=== PATIENT | male | born 1955 | race African-American/Black ===

== ENCOUNTER 2017-12-23 21:20 | Inpatient (IN) | payer BC ==
[~2017-12-23] VITALS: Ht 170.2 cm; Wt 107.5 kg
[~2017-12-23 21:20] MED LIST: ALBU6.7H INH; Atenolol PO; Docusate Sodium PO; LOSA100T3 PO
[2017-12-23] MEDS ORDERED: ALBUTEROL (0.083%) 2.5MG/3ML NEB HHN STA (21:23)
[2017-12-23] MEDS ORDERED: IPRATROPIUM BROMIDE (0.02%) 0.5MG/2.5ML NEB HHN STA (21:23)
[2017-12-23 21:38] LABS: BG BASE EXCESS -20.1 mmol/L (-2.0-2.0); BG CARBOXYHEMOGLOBIN 0.3 % (0.5-1.5); BG DEOXYHEMOGLOBIN 0.7 % (0.0-5.0); BG FRACTION INSPIRED OXYGEN 100; BG HCO3 ACT 6.1 mmol/L (22.0-26.0); BG METHEMOGLOBIN 0.3 % (0.0-1.5); BG OXYGEN SATURATION 99.3 % (92.0-98.5); BG OXYHEMOGLOBIN 98.7 % (94.0-97.0); BG PH 7.176 (7.350-7.450); BG PO2 219.4 mmHg (75.0-100.0); BG SAMPLE SITE RIGHT RADIAL; BG VENT MODE MASK - CPAP
[2017-12-23 22:02] LABS: HEMATOCRIT. 39.3 % (42.0-52.0); HEMOGLOBIN. 12.2 g/dL (14.0-18.0); MEAN CORPUSCULAR HEMOGLOBIN 25.4 pg (28.0-32.0); MEAN CORPUSCULAR VOLUME 81.8 fL (80.0-94.0); RED BLOOD CELL COUNT 4.81 mill/uL (4.7-6.1); RED CELL DISTRIBUTION WIDTH 15.5 % (11.6-14.6)
[2017-12-23 22:08] LABS: BETA HYDROXYBUTYRATE 0.4 mMol/L (0.0-0.3); CHLORIDE 92 mEq/L (98-107)
[2017-12-23] MEDS ORDERED: VANCOMYCIN 2,000 MG in DEXT 5% WATER 500 ML IV NR (22:15)
[2017-12-23] MEDS ORDERED: SODIUM CHLORIDE 0.9% 1000ML BAG (SEPSIS BOLUS) IV ONE (22:15)
[2017-12-23] MEDS ORDERED: PIPERACILLIN SODIUM/TAZOBACTAM 4.5 G in DEXT 5% WATER 100 ML IV SCH (22:15)
[2017-12-23 22:23] LABS: MEAN PLATELET VOLUME 10.8 fl (7.4-10.4); PLATELET 552 x1000/uL (130-400)
[2017-12-23 22:25] LABS: PLATELET ESTIMATE INCREASED
[2017-12-23] MEDS ORDERED: SODIUM BICARBONATE 8.4% 1 MEQ/ML 50ML SYR IV NR ×2 (22:45)
[2017-12-23] MEDS ORDERED: PIPERACILLIN/TAZ 2.25G PREMIX 50 ML IV NR (22:45)
[2017-12-23] MEDS ORDERED: SODIUM CHLORIDE 0.9% 1,000 ML IV NR (22:45)
[2017-12-24] VITALS (72 sets, daily range): BP systolic 53–149; BP diastolic 20–93
[2017-12-24] MEDS ORDERED: SODIUM BICARBONATE 8.4% 1 MEQ/ML 50ML SYR IV NR
[2017-12-24] MEDS ORDERED: NOREPINEPHRINE 4 MG in DEXT 5% WATER 246 ML IV ONE ×4 (00:45)
[2017-12-24 00:55] LABS: CLARITY URINE TURBID (CLEAR); KETONES URINE TRACE (NEGATIVE); LEUKOCYTE ESTERASE URINE 3+ (NEGATIVE); NITRITE URINE NEGATIVE (NEGATIVE); OCCULT BLOOD URINE 3+ (NEGATIVE); PROTEIN URINE 4+ (NEGATIVE); SPECIFIC GRAVITY URINE 1.018 (1.005-1.030)
[2017-12-24 01:00] LABS: COLOR URINE BROWN (YELLOW)
[2017-12-24] MEDS ORDERED: IBUPROFEN 600MG TABLET PO PRN (04:45)
[2017-12-24] MEDS ORDERED: SODIUM CHLORIDE 0.9% 100 ML IV ONE (04:45)
[2017-12-24] MEDS ORDERED: SODIUM CHLORIDE 0.9% 1,000 ML IV SCH (06:00)
[2017-12-24] MEDS ORDERED: PIPERACILLIN/TAZ 2.25G PREMIX 50 ML IV SCH (06:00)
[2017-12-24] MEDS ORDERED: PIPERACILLIN/TAZ 3.375G PREMIX 50 ML IV SCH (06:00)
[2017-12-24] MEDS: ENOXAPARIN 40MG/0.4ML SYR SUBCUT SCH (06:05)
[2017-12-24] MEDS: NOREPINEPHRINE 8 MG in SODIUM CHLORIDE 0.9% 242 ML IV PRN ×4 (06:08→21:28)
[2017-12-24] MEDS ORDERED: PANTOPRAZOLE 40MG DR TABLET PO SCH (07:50)
[2017-12-24 08:04] LABS: BG BASE EXCESS -3.1 mmol/L (-2.0-2.0); BG CARBOXYHEMOGLOBIN 0.3 % (0.5-1.5); BG DEOXYHEMOGLOBIN 3.6 % (0.0-5.0); BG FRACTION INSPIRED OXYGEN 44; BG HCO3 ACT 19.5 mmol/L (22.0-26.0); BG OXYGEN SATURATION 96.4 % (92.0-98.5); BG OXYHEMOGLOBIN 96.1 % (94.0-97.0); BG PCO2 27.6 mmHg (35.0-45.0); BG PH 7.466 (7.350-7.450); BG SAMPLE SITE LEFT BRACHIAL; BG TOTAL HEMOGLOBIN 11.8 g/dL (12.0-18.0); BG VENT MODE NASAL CANNULA
[2017-12-24] MEDS: SODIUM BICARBONATE 100 MEQ in DEXTROSE 5% WATER 1,000 ML IV SCH ×2 (08:39→21:27)
[2017-12-24 09:29] LABS: HEMATOCRIT. 33.1 % (42.0-52.0); HEMOGLOBIN. 10.9 g/dL (14.0-18.0); MEAN CORPUSCULAR VOLUME 78.7 fL (80.0-94.0); MEAN PLATELET VOLUME 10.5 fl (7.4-10.4); PLATELET 495 x1000/uL (130-400); RED BLOOD CELL COUNT 4.21 mill/uL (4.7-6.1); RED CELL DISTRIBUTION WIDTH 15.3 % (11.6-14.6)
[2017-12-24 10:19] LABS: PLATELET ESTIMATE INCREASED
[2017-12-24] MEDS ORDERED: ETOMIDATE 2MG/ML 10ML VIAL IV ONE (10:22)
[2017-12-24] MEDS ORDERED: SUCCINYLCHOLINE CHLORIDE 200MG/10ML VIAL IV ONE (10:22)
[2017-12-24] MEDS ORDERED: MIDAZOLAM HCL 100 MG in DEXT 5% WATER 80 ML IV PRN (10:30)
[2017-12-24 10:47] LABS: CREATINE KINASE MB FRACTION 20.4 ng/mL (0.5-3.6); T4 FREE 1.71 ng/dL (0.76-1.46)
[2017-12-24] MEDS ORDERED: POTASSIUM CHLORIDE INJ 40 MEQ in SODIUM CHLORIDE 0.9% 250 ML IV NR ×2 (12:00→21:00)
[2017-12-24] MEDS: FENTANYL CITRATE/PF 500 MCG in SODIUM CHLORIDE 0.9% 40 ML IV PRN ×2 (12:02→18:03)
[2017-12-24 13:46] LABS: BG BASE EXCESS -2.7 mmol/L (-2.0-2.0); BG CARBOXYHEMOGLOBIN 0.1 % (0.5-1.5); BG DEOXYHEMOGLOBIN 1.5 % (0.0-5.0); BG FRACTION INSPIRED OXYGEN 60; BG HCO3 ACT 19.6 mmol/L (22.0-26.0); BG METHEMOGLOBIN 0.2 % (0.0-1.5); BG OXYGEN SATURATION 98.5 % (92.0-98.5); BG OXYHEMOGLOBIN 98.2 % (94.0-97.0); BG PCO2 26.8 mmHg (35.0-45.0); BG PH 7.481 (7.350-7.450); BG PO2 124.9 mmHg (75.0-100.0); BG SAMPLE SITE RIGHT RADIAL; BG TIDAL VOLUME(mL) 500 mL; BG TOTAL HEMOGLOBIN 12.2 g/dL (12.0-18.0); BG VENT MODE VENT - A/C; BG VENT RATE 12 set
[2017-12-24] MEDS: MEROPENEM 1,000 MG in SODIUM CHLORIDE 0.9% 100 ML IV SCH ×2 (14:29→23:35)
[2017-12-24 15:47] LABS: CREATINE KINASE MB FRACTION 21.5 ng/mL (0.5-3.6)
[2017-12-24 15:58] LABS: TROPONIN I 0.61 ng/mL (0.00-0.04)
[2017-12-24 16:01] LABS: HEPATITIS B SURFACE ANTIGEN NEGATIVE
[2017-12-24 16:30] LABS: HEPATITIS B CORE AB IGM NEGATIVE
[2017-12-24 16:31] LABS: HEPATITIS A AB IGM NEGATIVE (NEGATIVE)
[2017-12-24] MEDS ORDERED: PHENYLEPHRINE 20 MG in DEXT 5% WATER 248 ML IV PRN (17:30)
[2017-12-24 18:29] LABS: BG BASE EXCESS -1.4 mmol/L (-2.0-2.0); BG CARBOXYHEMOGLOBIN 0.3 % (0.5-1.5); BG DEOXYHEMOGLOBIN 2.2 % (0.0-5.0); BG FRACTION INSPIRED OXYGEN 50; BG HCO3 ACT 20.7 mmol/L (22.0-26.0); BG OXYGEN SATURATION 97.8 % (92.0-98.5); BG OXYHEMOGLOBIN 97.5 % (94.0-97.0); BG PCO2 27.2 mmHg (35.0-45.0); BG PH 7.499 (7.350-7.450); BG PO2 101.6 mmHg (75.0-100.0); BG SAMPLE SITE RIGHT RADIAL; BG TIDAL VOLUME(mL) 500 mL; BG TOTAL HEMOGLOBIN 11.9 g/dL (12.0-18.0); BG VENT MODE VENT - A/C; BG VENT RATE 12 set
[2017-12-24 19:08] LABS: MEAN CORPUSCULAR HEMOGLOBIN 26.2 pg (28.0-32.0); MEAN CORPUSCULAR VOLUME 78.6 fL (80.0-94.0); PLATELET 441 x1000/uL (130-400); RED BLOOD CELL COUNT 3.44 mill/uL (4.7-6.1); RED CELL DISTRIBUTION WIDTH 15.7 % (11.6-14.6)
[2017-12-24] MEDS ORDERED: INSULIN REGULAR (DRIP) 100 UNITS in SODIUM CHLORIDE 0.9% 100 ML IV SCH (19:52)
[2017-12-24] MEDS ORDERED: INSULIN REGULAR (DRIP) 100 UNITS in SODIUM CHLORIDE 0.9% 99 ML IV PRN (20:00)
[2017-12-24] MEDS ORDERED: DEXTROSE 50% WATER 50ML SYRINGE IV PRN ×2 (20:00)
[2017-12-24] MEDS: BLOOD SUGAR DIAGNOSTIC STRIP TEST SCH ×4 (20:32→23:35)
[2017-12-24] MEDS ORDERED: PHENYLEPHRINE HCL 10 MG/ML 1ML (IV VIAL) IV ONE (20:34)
[2017-12-24] MEDS ORDERED: NOREPINEPHRINE BITARTRATE 1MG/ML 4ML IV ONE (20:34)
[2017-12-24] MEDS: IPRATROPIUM/ALBUTEROL 0.5-3(2.5)MG/3ML NEB HHN PRN (20:55)
[2017-12-24] MEDS ORDERED: VANCOMYCIN 750 MG PREMIX 150 ML IV SCH (22:00)
[2017-12-25] VITALS (96 sets, daily range): BP systolic 42–174; BP diastolic 19–101
[2017-12-25] MEDS: BLOOD SUGAR DIAGNOSTIC STRIP TEST SCH ×3 (01:00→02:58)
[2017-12-25] MEDS: NOREPINEPHRINE 8 MG in SODIUM CHLORIDE 0.9% 242 ML IV PRN ×2 (03:23→08:54)
[2017-12-25] MEDS: PHENYLEPHRINE 20 MG in SODIUM CHLORIDE 0.9% 248 ML IV PRN ×3 (03:24→08:55)
[2017-12-25] MEDS: FENTANYL CITRATE/PF 500 MCG in SODIUM CHLORIDE 0.9% 40 ML IV PRN ×3 (03:26→22:41)
[2017-12-25] MEDS: ACETAMINOPHEN 325MG TABLET PO PRN (03:29)
[2017-12-25 05:37] LABS: HEMATOCRIT. 30.5 % (42.0-52.0); HEMOGLOBIN. 10.1 g/dL (14.0-18.0); MEAN CORPUSCULAR HEMOGLOBIN 25.8 pg (28.0-32.0); MEAN CORPUSCULAR VOLUME 77.7 fL (80.0-94.0); PLATELET 576 x1000/uL (130-400); RED BLOOD CELL COUNT 3.92 mill/uL (4.7-6.1)
[2017-12-25] MEDS: MIDAZOLAM HCL 100 MG in SODIUM CHLORIDE 0.9% 80 ML IV PRN ×3 (05:38→19:48)
[2017-12-25] MEDS: SODIUM CHLORIDE 0.45% 1,000 ML IV SCH ×2 (05:40→18:14)
[2017-12-25 06:23] LABS: CREATINE KINASE MB FRACTION 7.3 ng/mL (0.5-3.6)
[2017-12-25 08:51] LABS: BG BASE EXCESS -4.4 mmol/L (-2.0-2.0); BG CARBOXYHEMOGLOBIN 0.3 % (0.5-1.5); BG DEOXYHEMOGLOBIN 4.7 % (0.0-5.0); BG FRACTION INSPIRED OXYGEN 40; BG HCO3 ACT 18.2 mmol/L (22.0-26.0); BG METHEMOGLOBIN 0.1 % (0.0-1.5); BG OXYGEN SATURATION 95.3 % (92.0-98.5); BG OXYHEMOGLOBIN 94.9 % (94.0-97.0); BG PCO2 26.4 mmHg (35.0-45.0); BG PH 7.457 (7.350-7.450); BG PO2 79.2 mmHg (75.0-100.0); BG SAMPLE SITE LEFT RADIAL; BG TIDAL VOLUME(mL) 500 mL; BG TOTAL HEMOGLOBIN 11.2 g/dL (12.0-18.0); BG VENT MODE VENT - A/C; BG VENT RATE 12 set
[2017-12-25] MEDS: ENOXAPARIN 40MG/0.4ML SYR SUBCUT SCH (08:58)
[2017-12-25] MEDS: VASOPRESSIN 10 UNIT in SODIUM CHLORIDE 0.9% 99.5 ML IV PRN ×3 (09:44→18:42)
[2017-12-25] MEDS: PANTOPRAZOLE SODIUM 40 MG/VIAL IV SCH (09:46)
[2017-12-25 09:52] LABS: PLATELET ESTIMATE INCREASED
[2017-12-25] MEDS ORDERED: DOPAMINE 800MG PREMIX 250 ML IV PRN (10:30)
[2017-12-25] MEDS: MEROPENEM 1,000 MG in SODIUM CHLORIDE 0.9% 100 ML IV SCH ×2 (11:02→23:46)
[2017-12-25] MEDS: PHENYLEPHRINE 40 MG in SODIUM CHLORIDE 0.9% 250 ML IV PRN ×4 (11:16→23:46)
[2017-12-25] MEDS ORDERED: DOPAMINE HCL 800 MG in SODIUM CHLORIDE 0.9% 240 ML IV PRN (11:30)
[2017-12-25] MEDS: NOREPINEPHRINE 32 MG in DEXT 5% WATER 468 ML IV PRN (13:51)
[2017-12-25 15:06] LABS: INR 1.4; PARTIAL THROMBOPLASTIN TIME 32.5 sec (23.4-31.0); PROTHROMBIN TIME 14.2 sec (9.4-11.6)
[2017-12-25] MEDS ORDERED: AMIKACIN SULFATE 250 MG in SODIUM CHLORIDE 0.9% 100 ML IV NR (15:30)
[2017-12-25 15:31] LABS: CHLORIDE 99 mEq/L (98-107)
[2017-12-25 19:10] LABS: ANTI-NUCLEAR ANTIBODIES DIRECT Negative (Negative)
[2017-12-25] MEDS: IPRATROPIUM/ALBUTEROL 0.5-3(2.5)MG/3ML NEB HHN PRN (21:06)
[2017-12-26] VITALS (96 sets, daily range): BP systolic 89–161; BP diastolic 33–108
[2017-12-26] MEDS: VASOPRESSIN 10 UNIT in SODIUM CHLORIDE 0.9% 99.5 ML IV PRN (00:41)
[2017-12-26] MEDS: PHENYLEPHRINE 40 MG in SODIUM CHLORIDE 0.9% 250 ML IV PRN ×4 (03:14→16:30)
[2017-12-26] MEDS: FENTANYL CITRATE/PF 500 MCG in SODIUM CHLORIDE 0.9% 40 ML IV PRN ×2 (03:15→11:50)
[2017-12-26 04:55] LABS: HEMOGLOBIN. 10.6 g/dL (14.0-18.0); MEAN CORPUSCULAR VOLUME 78.4 fL (80.0-94.0); MEAN PLATELET VOLUME 10.1 fl (7.4-10.4); PLATELET 524 x1000/uL (130-400); RED BLOOD CELL COUNT 4.21 mill/uL (4.7-6.1); RED CELL DISTRIBUTION WIDTH 15.6 % (11.6-14.6)
[2017-12-26 05:08] LABS: PHOSPHORUS 7.8 mg/dL (2.5-4.9)
[2017-12-26] MEDS: MIDAZOLAM HCL 100 MG in SODIUM CHLORIDE 0.9% 80 ML IV PRN (06:33)
[2017-12-26] MEDS: NOREPINEPHRINE 32 MG in DEXT 5% WATER 468 ML IV PRN (07:39)
[2017-12-26] MEDS: SODIUM CHLORIDE 0.45% 1,000 ML IV SCH ×2 (07:46→20:34)
[2017-12-26] MEDS: IPRATROPIUM/ALBUTEROL 0.5-3(2.5)MG/3ML NEB HHN PRN ×3 (07:52→16:08)
[2017-12-26 08:25] LABS: BG BASE EXCESS -7.4 mmol/L (-2.0-2.0); BG CARBOXYHEMOGLOBIN 0.3 % (0.5-1.5); BG DEOXYHEMOGLOBIN 1.9 % (0.0-5.0); BG FRACTION INSPIRED OXYGEN 50; BG HCO3 ACT 16.5 mmol/L (22.0-26.0); BG METHEMOGLOBIN 0.2 % (0.0-1.5); BG OXYGEN SATURATION 98.1 % (92.0-98.5); BG OXYHEMOGLOBIN 97.6 % (94.0-97.0); BG PCO2 28.2 mmHg (35.0-45.0); BG PH 7.386 (7.350-7.450); BG PO2 121.7 mmHg (75.0-100.0); BG SAMPLE SITE RIGHT RADIAL; BG TIDAL VOLUME(mL) 500 mL; BG TOTAL HEMOGLOBIN 9.9 g/dL (12.0-18.0); BG VENT MODE VENT - A/C; BG VENT RATE 12 set
[2017-12-26] MEDS ORDERED: SODIUM BICARBONATE 8.4% 1 MEQ/ML 50ML SYR IV NR (09:00)
[2017-12-26 09:06] LABS: COMPLEMENT C3 163 mg/dL (82-167)
[2017-12-26] MEDS: PANTOPRAZOLE SODIUM 40 MG/VIAL IV SCH (09:07)
[2017-12-26] MEDS: ENOXAPARIN 40MG/0.4ML SYR SUBCUT SCH (09:08)
[2017-12-26 10:16] LABS: PLATELET ESTIMATE INCREASED
[2017-12-26] MEDS: MEROPENEM 1,000 MG in SODIUM CHLORIDE 0.9% 100 ML IV SCH ×2 (11:19→21:52)
[2017-12-26] MEDS ORDERED: VANCOMYCIN 750 MG PREMIX 150 ML IV NR (18:00)
[2017-12-26] MEDS: SILVER SULFADIAZINE 1% CREAM 50GM TOP SCH (21:53)
[2017-12-27] VITALS (90 sets, daily range): BP systolic 92–123; BP diastolic 23–66
[2017-12-27] MEDS: FENTANYL CITRATE/PF 500 MCG in SODIUM CHLORIDE 0.9% 40 ML IV PRN ×2 (00:01→08:59)
[2017-12-27] MEDS: NOREPINEPHRINE 32 MG in DEXT 5% WATER 468 ML IV PRN ×3 (00:02→23:16)
[2017-12-27] MEDS: IPRATROPIUM/ALBUTEROL 0.5-3(2.5)MG/3ML NEB HHN PRN ×3 (07:43→16:58)
[2017-12-27 08:20] LABS: HEMATOCRIT. 26.5 % (42.0-52.0); HEMOGLOBIN. 8.8 g/dL (14.0-18.0); MEAN CORPUSCULAR HEMOGLOBIN 25.6 pg (28.0-32.0); MEAN CORPUSCULAR VOLUME 77.2 fL (80.0-94.0); MEAN PLATELET VOLUME 9.8 fl (7.4-10.4); PLATELET 484 x1000/uL (130-400); RED BLOOD CELL COUNT 3.44 mill/uL (4.7-6.1)
[2017-12-27] MEDS: ENOXAPARIN 40MG/0.4ML SYR SUBCUT SCH (08:58)
[2017-12-27] MEDS: PANTOPRAZOLE SODIUM 40 MG/VIAL IV SCH (08:58)
[2017-12-27] MEDS: SILVER SULFADIAZINE 1% CREAM 50GM TOP SCH ×2 (08:58→21:53)
[2017-12-27 09:35] LABS: BG BASE EXCESS -3.9 mmol/L (-2.0-2.0); BG CARBOXYHEMOGLOBIN 0.3 % (0.5-1.5); BG DEOXYHEMOGLOBIN 2.6 % (0.0-5.0); BG FRACTION INSPIRED OXYGEN 35; BG HCO3 ACT 19.2 mmol/L (22.0-26.0); BG METHEMOGLOBIN 0.3 % (0.0-1.5); BG OXYGEN SATURATION 97.4 % (92.0-98.5); BG OXYHEMOGLOBIN 96.8 % (94.0-97.0); BG PCO2 28.4 mmHg (35.0-45.0); BG PH 7.448 (7.350-7.450); BG PO2 102.1 mmHg (75.0-100.0); BG SAMPLE SITE RIGHT BRACHIAL; BG TIDAL VOLUME(mL) 550 mL; BG TOTAL HEMOGLOBIN 9.7 g/dL (12.0-18.0); BG VENT MODE VENT - A/C; BG VENT RATE 12 set
[2017-12-27] MEDS: SODIUM CHLORIDE 0.45% 1,000 ML IV SCH (10:28)
[2017-12-27] MEDS: MEROPENEM 1,000 MG in SODIUM CHLORIDE 0.9% 100 ML IV SCH ×2 (10:28→23:14)
[2017-12-27 10:29] LABS: NUCLEATED RED BLOOD CELLS 2 /100 WBC; PLATELET ESTIMATE INCREASED
[2017-12-27 10:44] LABS: TOTAL IRON BINDING CAPACITY 166 ug/dL (250-450)
[2017-12-27] MEDS ORDERED: PHENYLEPHRINE HCL 10 MG/ML 1ML (IV VIAL) IV ONE (14:59)
[2017-12-27] MEDS ORDERED: FENTANYL CITRATE/PF 50MCG/ML 2ML VIAL ONE (14:59)
[2017-12-27] MEDS ORDERED: EPHEDRINE SULFATE 50MG/ML VIAL ONE (15:04)
[2017-12-27] MEDS ORDERED: STERILE WATER FOR INJECTION 10ML VIAL ONE (15:04)
[2017-12-27] MEDS ORDERED: BUPIVACAINE HCL 0.5% (5MG/ML) 50ML ONE (15:20)
[2017-12-27] MEDS ORDERED: ROCURONIUM BROMIDE 10MG/ML VIAL 5ML IV ONE (15:35)
[2017-12-27] MEDS ORDERED: ACETAMINOPHEN 650MG SUPP PR PRN (16:00)
[2017-12-27] MEDS ORDERED: MORPHINE SULFATE 4 MG/ML CPJ (NOT FOR IM USE) IV PRN (16:00)
[2017-12-27] MEDS ORDERED: ONDANSETRON HCL 4MG/2ML VIAL IV PRN (16:00)
[2017-12-27] MEDS ORDERED: VECURONIUM BROMIDE 10 MG/VIAL IV ONE (16:51)
[2017-12-27] MEDS ORDERED: VANCOMYCIN 750 MG PREMIX 150 ML IV NR (17:00)
[2017-12-27] MEDS: DEXT 5%/0.45% NACL KCL 20MEQ/L 1,000 ML IV SCH (17:20)
[2017-12-27] MEDS: METRONIDAZOLE 500 MG PREMIX 100 ML IV SCH ×2 (17:20→21:53)
[2017-12-27] MEDS: ENOXAPARIN 30MG/0.3ML SYR SUBCUT SCH (21:52)
[2017-12-27] MEDS: FAMOTIDINE 20MG/2ML VIAL IV SCH (21:52)
[2017-12-28] VITALS (94 sets, daily range): BP systolic 97–132; BP diastolic 33–81
[2017-12-28] MEDS: DEXT 5%/0.45% NACL KCL 20MEQ/L 1,000 ML IV SCH (00:47)
[2017-12-28 05:20] LABS: HEMATOCRIT. 27.5 % (42.0-52.0); HEMOGLOBIN. 8.9 g/dL (14.0-18.0); MEAN CORPUSCULAR HEMOGLOBIN 25.5 pg (28.0-32.0); MEAN CORPUSCULAR VOLUME 78.4 fL (80.0-94.0); MEAN PLATELET VOLUME 10.1 fl (7.4-10.4); PLATELET 426 x1000/uL (130-400); RED BLOOD CELL COUNT 3.51 mill/uL (4.7-6.1); RED CELL DISTRIBUTION WIDTH 15.3 % (11.6-14.6)
[2017-12-28] MEDS: METRONIDAZOLE 500 MG PREMIX 100 ML IV SCH ×3 (06:03→23:58)
[2017-12-28 07:14] LABS: NUCLEATED RED BLOOD CELLS 3 /100 WBC; PLATELET ESTIMATE INCREASED
[2017-12-28] MEDS ORDERED: DEXT 5%/0.45% NACL 1000ML 1,000 ML IV SCH (07:30)
[2017-12-28] MEDS: IPRATROPIUM/ALBUTEROL 0.5-3(2.5)MG/3ML NEB HHN PRN ×2 (07:46→16:01)
[2017-12-28] MEDS: PANTOPRAZOLE SODIUM 40 MG/VIAL IV SCH (08:47)
[2017-12-28] MEDS: SILVER SULFADIAZINE 1% CREAM 50GM TOP SCH ×2 (08:48→20:56)
[2017-12-28] MEDS: ENOXAPARIN 30MG/0.3ML SYR SUBCUT SCH ×2 (08:48→20:53)
[2017-12-28 09:46] LABS: BG BASE EXCESS -3.3 mmol/L (-2.0-2.0); BG CARBOXYHEMOGLOBIN 0.1 % (0.5-1.5); BG HCO3 ACT 19.2 mmol/L (22.0-26.0); BG METHEMOGLOBIN 0.3 % (0.0-1.5); BG OXYHEMOGLOBIN 97.6 % (94.0-97.0); BG PCO2 26.5 mmHg (35.0-45.0); BG PH 7.479 (7.350-7.450); BG PO2 117.2 mmHg (75.0-100.0); BG SAMPLE SITE RIGHT RADIAL; BG TIDAL VOLUME(mL) 550 mL; BG TOTAL HEMOGLOBIN 9.8 g/dL (12.0-18.0); BG VENT MODE VENT - A/C; BG VENT RATE 16 set
[2017-12-28] MEDS: MEROPENEM 1,000 MG in SODIUM CHLORIDE 0.9% 100 ML IV SCH ×2 (11:35→23:58)
[2017-12-28 13:07] LABS: ANTI-MYELOPEROXIDASE AB < 9.0 U/mL (0.0-9.0); ANTI-PROTEINASE 3 ABS < 3.5 U/mL (0.0-3.5)
[2017-12-28 15:10] LABS: ATYPICAL P-ANCA <1:20 titer (Neg:<1:20); CYTOPLASMIC C-ANCA <1:20 titer (Neg:<1:20); PERINUCLEAR P-ANCA <1:20 titer (Neg:<1:20)
[2017-12-28] MEDS: NOREPINEPHRINE 32 MG in DEXT 5% WATER 468 ML IV PRN (17:20)
[2017-12-28] MEDS: FENTANYL CITRATE/PF 500 MCG in SODIUM CHLORIDE 0.9% 40 ML IV PRN (17:20)
[2017-12-28] MEDS: FAMOTIDINE 20MG/2ML VIAL IV SCH (20:53)
[2017-12-28] MEDS ORDERED: TOTAL PARENTERAL NUTRITION 1,600 ML IV SCH (21:00)
[2017-12-28] MEDS ORDERED: FAT EMULSIONS 500 ML IV SCH (21:00)
[2017-12-29] VITALS (95 sets, daily range): BP systolic 88–175; BP diastolic 30–94
[2017-12-29] MEDS: VANCOMYCIN 1250MG in DEXTROSE 5% WATER 250ML IV SCH (05:26)
[2017-12-29 06:03] LABS: PHOSPHORUS 3.6 mg/dL (2.5-4.9)
[2017-12-29 06:14] LABS: RED BLOOD CELL COUNT 3.16 mill/uL (4.7-6.1)
[2017-12-29 06:15] LABS: HEMATOCRIT. 24.7 % (42.0-52.0); HEMOGLOBIN. 8.6 g/dL (14.0-18.0); MEAN CORPUSCULAR HEMOGLOBIN 27.2 pg (28.0-32.0); MEAN PLATELET VOLUME 10.4 fl (7.4-10.4); PLATELET 380 x1000/uL (130-400)
[2017-12-29] MEDS: METRONIDAZOLE 500 MG PREMIX 100 ML IV SCH ×3 (07:09→22:46)
[2017-12-29] MEDS: IPRATROPIUM/ALBUTEROL 0.5-3(2.5)MG/3ML NEB HHN PRN ×3 (08:08→20:10)
[2017-12-29] MEDS: ENOXAPARIN 30MG/0.3ML SYR SUBCUT SCH ×2 (08:29→20:34)
[2017-12-29] MEDS: SILVER SULFADIAZINE 1% CREAM 50GM TOP SCH ×2 (08:33→20:39)
[2017-12-29] MEDS ORDERED: LIDOCAINE HCL/PF 1% 10 MG/ML 5ML VIAL ONE (08:48)
[2017-12-29 09:28] LABS: BG BASE EXCESS -3.7 mmol/L (-2.0-2.0); BG DEOXYHEMOGLOBIN 1.3 % (0.0-5.0); BG FRACTION INSPIRED OXYGEN 35; BG HCO3 ACT 18.9 mmol/L (22.0-26.0); BG METHEMOGLOBIN 0.3 % (0.0-1.5); BG OXYGEN SATURATION 98.7 % (92.0-98.5); BG OXYHEMOGLOBIN 98.4 % (94.0-97.0); BG PCO2 25.7 mmHg (35.0-45.0); BG PH 7.484 (7.350-7.450); BG PO2 133.9 mmHg (75.0-100.0); BG SAMPLE SITE RIGHT RADIAL; BG TIDAL VOLUME(mL) 550 mL; BG TOTAL HEMOGLOBIN 8.9 g/dL (12.0-18.0); BG VENT MODE VENT - A/C; BG VENT RATE 16 set
[2017-12-29 09:54] LABS: INR 1.3; PARTIAL THROMBOPLASTIN TIME 28.7 sec (23.4-31.0); PROTHROMBIN TIME 13.4 sec (9.4-11.6)
[2017-12-29 10:06] LABS: NUCLEATED RED BLOOD CELLS 1 /100 WBC
[2017-12-29] MEDS ORDERED: DEXTROSE 50% WATER 50ML SYRINGE IV PRN (10:30)
[2017-12-29] MEDS: BLOOD SUGAR DIAGNOSTIC STRIP TEST SCH ×3 (12:45→23:35)
[2017-12-29] MEDS: INSULIN LISPRO (LOW DOSE) 100 UNITS/ML SUBCUT SCH ×3 (13:21→23:39)
[2017-12-29] MEDS: MEROPENEM 1,000 MG in SODIUM CHLORIDE 0.9% 100 ML IV SCH ×2 (15:36→22:45)
[2017-12-29] MEDS: FAMOTIDINE 20MG/2ML VIAL IV SCH (20:34)
[2017-12-29] MEDS ORDERED: TOTAL PARENTERAL NUTRITION 1,600 ML IV SCH (21:00)
[2017-12-30] VITALS (95 sets, daily range): BP systolic 73–140; BP diastolic 32–53
[2017-12-30] MEDS: FENTANYL CITRATE/PF 500 MCG in SODIUM CHLORIDE 0.9% 40 ML IV PRN (04:55)
[2017-12-30] MEDS: BLOOD SUGAR DIAGNOSTIC STRIP TEST SCH ×4 (05:28→23:14)
[2017-12-30] MEDS: INSULIN LISPRO (LOW DOSE) 100 UNITS/ML SUBCUT SCH ×4 (05:33→23:15)
[2017-12-30 06:03] LABS: HEMOGLOBIN. 7.9 g/dL (14.0-18.0); MEAN CORPUSCULAR HEMOGLOBIN 25.7 pg (28.0-32.0); MEAN CORPUSCULAR VOLUME 77.8 fL (80.0-94.0); MEAN PLATELET VOLUME 10.3 fl (7.4-10.4); PLATELET 282 x1000/uL (130-400); RED BLOOD CELL COUNT 3.09 mill/uL (4.7-6.1); RED CELL DISTRIBUTION WIDTH 14.7 % (11.6-14.6)
[2017-12-30 06:12] LABS: PHOSPHORUS 3.3 mg/dL (2.5-4.9)
[2017-12-30] MEDS: METRONIDAZOLE 500 MG PREMIX 100 ML IV SCH ×2 (06:13→14:18)
[2017-12-30] MEDS: IPRATROPIUM/ALBUTEROL 0.5-3(2.5)MG/3ML NEB HHN PRN ×3 (07:36→20:31)
[2017-12-30] MEDS: ENOXAPARIN 30MG/0.3ML SYR SUBCUT SCH (09:00)
[2017-12-30 09:23] LABS: BG BASE EXCESS -2.4 mmol/L (-2.0-2.0); BG CARBOXYHEMOGLOBIN 0.5 % (0.5-1.5); BG DEOXYHEMOGLOBIN 1.8 % (0.0-5.0); BG FRACTION INSPIRED OXYGEN 35; BG HCO3 ACT 20.6 mmol/L (22.0-26.0); BG METHEMOGLOBIN 0.3 % (0.0-1.5); BG OXYGEN SATURATION 98.2 % (92.0-98.5); BG OXYHEMOGLOBIN 97.4 % (94.0-97.0); BG PCO2 28.2 mmHg (35.0-45.0); BG PH 7.481 (7.350-7.450); BG PO2 115.5 mmHg (75.0-100.0); BG SAMPLE SITE RIGHT RADIAL; BG TIDAL VOLUME(mL) 550 mL; BG TOTAL HEMOGLOBIN 7.8 g/dL (12.0-18.0); BG VENT MODE VENT - A/C; BG VENT RATE 16 set
[2017-12-30] MEDS: SILVER SULFADIAZINE 1% CREAM 50GM TOP SCH ×2 (09:53→20:17)
[2017-12-30 10:23] LABS: PLATELET ESTIMATE NORMAL
[2017-12-30] MEDS: MEROPENEM 1,000 MG in SODIUM CHLORIDE 0.9% 100 ML IV SCH ×2 (11:03→23:14)
[2017-12-30] MEDS: ACETAMINOPHEN 325MG TABLET PO PRN (12:22)
[2017-12-30 17:49] LABS: HEMATOCRIT 25.1 % (42.0-52.0); HEMOGLOBIN 8.2 g/dL (14.0-18.0)
[2017-12-30] MEDS: VANCOMYCIN 1250MG in DEXTROSE 5% WATER 250ML IV SCH (18:02)
[2017-12-30] MEDS: FAMOTIDINE 20MG/2ML VIAL IV SCH (20:17)
[2017-12-30] MEDS ORDERED: TOTAL PARENTERAL NUTRITION 1,600 ML IV SCH (21:00)
[2017-12-31] VITALS (93 sets, daily range): BP systolic 66–163; BP diastolic 15–99
[2017-12-31] MEDS: IPRATROPIUM/ALBUTEROL 0.5-3(2.5)MG/3ML NEB HHN PRN ×4 (00:19→15:28)
[2017-12-31] MEDS: METRONIDAZOLE 500 MG PREMIX 100 ML IV SCH ×3 (00:22→18:31)
[2017-12-31 05:45] LABS: HEMATOCRIT. 24.4 % (42.0-52.0); HEMOGLOBIN. 8.2 g/dL (14.0-18.0); MEAN CORPUSCULAR HEMOGLOBIN 26.5 pg (28.0-32.0); MEAN CORPUSCULAR VOLUME 78.5 fL (80.0-94.0); MEAN PLATELET VOLUME 10.6 fl (7.4-10.4); PLATELET 240 x1000/uL (130-400); RED BLOOD CELL COUNT 3.11 mill/uL (4.7-6.1); RED CELL DISTRIBUTION WIDTH 15.1 % (11.6-14.6)
[2017-12-31 06:04] LABS: PHOSPHORUS 4.2 mg/dL (2.5-4.9)
[2017-12-31] MEDS: BLOOD SUGAR DIAGNOSTIC STRIP TEST SCH ×4 (06:35→18:25)
[2017-12-31] MEDS: INSULIN LISPRO (LOW DOSE) 100 UNITS/ML SUBCUT SCH ×3 (06:36→18:00)
[2017-12-31 07:39] LABS: NUCLEATED RED BLOOD CELLS 1 /100 WBC; PLATELET ESTIMATE NORMAL
[2017-12-31] MEDS: SILVER SULFADIAZINE 1% CREAM 50GM TOP SCH ×2 (09:00→21:13)
[2017-12-31] MEDS ORDERED: ENOXAPARIN 40MG/0.4ML SYR SUBCUT SCH (09:00)
[2017-12-31] MEDS ORDERED: HEPARIN SODIUM 1,000 UNIT/1ML VIAL IV NR (09:45)
[2017-12-31] MEDS: MEROPENEM 1,000 MG in SODIUM CHLORIDE 0.9% 100 ML IV SCH (12:07)
[2017-12-31] MEDS ORDERED: FENTANYL CITRATE/PF 500 MCG in SODIUM CHLORIDE 0.9% 40 ML IV PRN (12:45)
[2017-12-31] MEDS ORDERED: LIDOCAINE HCL 1% 20ML VIAL (Pyxis) INJ ONE (13:57)
[2017-12-31 15:49] LABS: BG BASE EXCESS 0.1 mmol/L (-2.0-2.0); BG CARBOXYHEMOGLOBIN 0.3 % (0.5-1.5); BG DEOXYHEMOGLOBIN 1.8 % (0.0-5.0); BG FRACTION INSPIRED OXYGEN 35; BG HCO3 ACT 22.3 mmol/L (22.0-26.0); BG METHEMOGLOBIN 0.2 % (0.0-1.5); BG OXYGEN SATURATION 98.2 % (92.0-98.5); BG OXYHEMOGLOBIN 97.7 % (94.0-97.0); BG PCO2 28.3 mmHg (35.0-45.0); BG PH 7.515 (7.350-7.450); BG PO2 115.6 mmHg (75.0-100.0); BG SAMPLE SITE RIGHT RADIAL; BG TIDAL VOLUME(mL) 550 mL; BG TOTAL HEMOGLOBIN 10.1 g/dL (12.0-18.0); BG VENT MODE VENT - A/C; BG VENT RATE 16 set
[2017-12-31] MEDS ORDERED: FLUCONAZOLE 400MG/200ML BAG 200 ML IV SCH (16:00)
[2017-12-31] MEDS ORDERED: LIDOCAINE HCL 1% 20ML VIAL (Pyxis) INJ INFIL NR (19:00)
[2017-12-31] MEDS ORDERED: TOTAL PARENTERAL NUTRITION 1,600 ML IV SCH (21:00)
[2017-12-31] MEDS: PANTOPRAZOLE SODIUM 40 MG/VIAL IV SCH (21:11)
[2017-12-31] MEDS: FAMOTIDINE 20MG/2ML VIAL IV SCH (21:12)
[2017-12-31] MEDS: EPOETIN ALFA 10000UNITS/ML VIAL SUBCUT SCH (21:12)
[2018-01-01] VITALS (104 sets, daily range): BP systolic 80–174; BP diastolic 30–79
[2018-01-01] MEDS: BLOOD SUGAR DIAGNOSTIC STRIP TEST SCH
[2018-01-01] MEDS: MEROPENEM 1,000 MG in SODIUM CHLORIDE 0.9% 100 ML IV SCH ×2 (01:41→12:40)
[2018-01-01] MEDS: METRONIDAZOLE 500 MG PREMIX 100 ML IV SCH ×3 (02:20→17:21)
[2018-01-01] MEDS: NOREPINEPHRINE 32 MG in DEXT 5% WATER 468 ML IV PRN (02:24)
[2018-01-01 05:36] LABS: HEMATOCRIT. 23.8 % (42.0-52.0); HEMOGLOBIN. 7.9 g/dL (14.0-18.0); MEAN CORPUSCULAR HEMOGLOBIN 25.9 pg (28.0-32.0); MEAN CORPUSCULAR VOLUME 78.2 fL (80.0-94.0); MEAN PLATELET VOLUME 10.8 fl (7.4-10.4); PLATELET 241 x1000/uL (130-400); RED BLOOD CELL COUNT 3.04 mill/uL (4.7-6.1); RED CELL DISTRIBUTION WIDTH 15.5 % (11.6-14.6)
[2018-01-01] MEDS: INSULIN LISPRO (LOW DOSE) 100 UNITS/ML SUBCUT SCH ×4 (06:00→18:00)
[2018-01-01 06:22] LABS: PHOSPHORUS 4.4 mg/dL (2.5-4.9)
[2018-01-01 07:06] LABS: PLATELET ESTIMATE NORMAL
[2018-01-01] MEDS: SILVER SULFADIAZINE 1% CREAM 50GM TOP SCH ×2 (08:44→21:59)
[2018-01-01] MEDS: IPRATROPIUM/ALBUTEROL 0.5-3(2.5)MG/3ML NEB HHN PRN ×3 (09:06→16:41)
[2018-01-01] MEDS ORDERED: SODIUM BICARBONATE 4% (2.4MEQ) 5ML VIAL IV ONE (09:20)
[2018-01-01] MEDS ORDERED: LIDOCAINE HCL/PF 1% 10 MG/ML 5ML VIAL ONE (09:21)
[2018-01-01] MEDS ORDERED: DIPHENHYDRAMINE 50MG/ML VIAL ONE (10:35)
[2018-01-01] MEDS ORDERED: FENTANYL CITRATE/PF 50MCG/ML 2ML VIAL ONE (10:35)
[2018-01-01] MEDS ORDERED: MIDAZOLAM HCL 5 MG/5 ML VIAL ONE (10:36)
[2018-01-01] MEDS ORDERED: SIMETHICONE 40 MG/0.6 ML 30ML ONE (10:46)
[2018-01-01] MEDS ORDERED: SODIUM CHLORIDE 0.9% 10ML VIAL ONE (10:46)
[2018-01-01] MEDS ORDERED: MIDAZOLAM HCL 5 MG/5 ML VIAL IV PRN (11:44)
[2018-01-01] MEDS ORDERED: FENTANYL CITRATE/PF 50MCG/ML 2ML VIAL IV PRN (11:45)
[2018-01-01] MEDS: PANTOPRAZOLE SODIUM 40 MG/VIAL IV SCH ×2 (12:39→21:58)
[2018-01-01] MEDS: FENTANYL CITRATE/PF 500 MCG in SODIUM CHLORIDE 0.9% 40 ML IV PRN (12:51)
[2018-01-01 13:34] LABS: BG BASE EXCESS -1.9 mmol/L (-2.0-2.0); BG CARBOXYHEMOGLOBIN 0.1 % (0.5-1.5); BG DEOXYHEMOGLOBIN 3.1 % (0.0-5.0); BG FRACTION INSPIRED OXYGEN 35; BG HCO3 ACT 21.4 mmol/L (22.0-26.0); BG METHEMOGLOBIN 0.3 % (0.0-1.5); BG OXYGEN SATURATION 96.9 % (92.0-98.5); BG OXYHEMOGLOBIN 96.5 % (94.0-97.0); BG PCO2 30.5 mmHg (35.0-45.0); BG PH 7.464 (7.350-7.450); BG SAMPLE SITE RIGHT BRACHIAL; BG TIDAL VOLUME(mL) 550 mL; BG TOTAL HEMOGLOBIN 8.1 g/dL (12.0-18.0); BG VENT MODE VENT - A/C; BG VENT RATE 12 set
[2018-01-01] MEDS ORDERED: MICAFUNGIN 100 MG in SODIUM CHLORIDE 0.9% 100 ML IV SCH (15:00)
[2018-01-01] MEDS ORDERED: TOTAL PARENTERAL NUTRITION 1,600 ML IV SCH (21:00)
[2018-01-02] VITALS (94 sets, daily range): BP systolic 88–201; BP diastolic 31–108
[2018-01-02] MEDS: MEROPENEM 1,000 MG in SODIUM CHLORIDE 0.9% 100 ML IV SCH ×2 (00:34→10:52)
[2018-01-02] MEDS: METRONIDAZOLE 500 MG PREMIX 100 ML IV SCH ×3 (00:34→15:42)
[2018-01-02 07:19] LABS: HEMATOCRIT. 21.4 % (42.0-52.0); MEAN CORPUSCULAR HEMOGLOBIN 25.7 pg (28.0-32.0); MEAN CORPUSCULAR VOLUME 79.2 fL (80.0-94.0); MEAN PLATELET VOLUME 10.7 fl (7.4-10.4); PLATELET 225 x1000/uL (130-400); RED CELL DISTRIBUTION WIDTH 15.7 % (11.6-14.6)
[2018-01-02 08:01] LABS: PLATELET ESTIMATE NORMAL
[2018-01-02] MEDS: INSULIN LISPRO (LOW DOSE) 100 UNITS/ML SUBCUT SCH ×4 (08:35→17:09)
[2018-01-02] MEDS: BLOOD SUGAR DIAGNOSTIC STRIP TEST SCH (10:45)
[2018-01-02] MEDS: SILVER SULFADIAZINE 1% CREAM 50GM TOP SCH ×2 (10:52→21:24)
[2018-01-02] MEDS: METOCLOPRAMIDE HCL 10MG/2ML VIAL IV SCH ×3 (10:52→17:09)
[2018-01-02] MEDS: PANTOPRAZOLE SODIUM 40 MG/VIAL IV SCH ×2 (10:52→21:24)
[2018-01-02] MEDS: NOREPINEPHRINE 32 MG in DEXT 5% WATER 468 ML IV PRN (11:41)
[2018-01-02] MEDS ORDERED: VANCOMYCIN 1 G PREMIX 200 ML IV SCH (13:00)
[2018-01-02] MEDS: MICAFUNGIN 100 MG in SODIUM CHLORIDE 0.9% 100 ML IV SCH (13:11)
[2018-01-02] MEDS: FENTANYL CITRATE/PF 500 MCG in SODIUM CHLORIDE 0.9% 40 ML IV PRN ×2 (17:11→23:30)
[2018-01-02 17:22] LABS: HEMATOCRIT 23.5 % (42.0-52.0); HEMOGLOBIN 7.8 g/dL (14.0-18.0)
[2018-01-02] MEDS: TOTAL PARENTERAL NUTRITION 1,600 ML IV SCH (20:56)
[2018-01-02] MEDS: EPOETIN ALFA 10000UNITS/ML VIAL SUBCUT SCH (21:24)
[2018-01-02 21:29] LABS: INR 1.3; PARTIAL THROMBOPLASTIN TIME 22.6 sec (23.4-31.0); PROTHROMBIN TIME 13.4 sec (9.4-11.6)
[2018-01-03] VITALS (91 sets, daily range): BP systolic 92–157; BP diastolic 25–90
[2018-01-03] MEDS: METRONIDAZOLE 500 MG PREMIX 100 ML IV SCH ×4 (00:25→22:51)
[2018-01-03] MEDS: MEROPENEM 1,000 MG in SODIUM CHLORIDE 0.9% 100 ML IV SCH ×3 (00:25→23:23)
[2018-01-03] MEDS: IPRATROPIUM/ALBUTEROL 0.5-3(2.5)MG/3ML NEB HHN PRN ×5 (00:52→20:25)
[2018-01-03] MEDS: METOCLOPRAMIDE HCL 10MG/2ML VIAL IV SCH ×4 (02:35→21:17)
[2018-01-03] MEDS: FENTANYL CITRATE/PF 500 MCG in SODIUM CHLORIDE 0.9% 40 ML IV PRN ×2 (05:09→21:31)
[2018-01-03] MEDS: INSULIN LISPRO (LOW DOSE) 100 UNITS/ML SUBCUT SCH ×4 (06:00→18:00)
[2018-01-03 08:54] LABS: BG BASE EXCESS -2.6 mmol/L (-2.0-2.0); BG CARBOXYHEMOGLOBIN 0.4 % (0.5-1.5); BG DEOXYHEMOGLOBIN 0.5 % (0.0-5.0); BG HCO3 ACT 21.3 mmol/L (22.0-26.0); BG METHEMOGLOBIN 0.9 % (0.0-1.5); BG OXYGEN SATURATION 99.5 % (92.0-98.5); BG OXYHEMOGLOBIN 98.2 % (94.0-97.0); BG PCO2 33.7 mmHg (35.0-45.0); BG PH 7.419 (7.350-7.450); BG PO2 390.7 mmHg (75.0-100.0); BG SAMPLE SITE RIGHT RADIAL; BG TIDAL VOLUME(mL) 550 mL; BG TOTAL HEMOGLOBIN 11.2 g/dL (12.0-18.0); BG VENT MODE VENT - A/C; BG VENT RATE 12 set
[2018-01-03 09:01] LABS: HEMATOCRIT. 26.1 % (42.0-52.0); HEMOGLOBIN. 8.7 g/dL (14.0-18.0); MEAN CORPUSCULAR HEMOGLOBIN 27.1 pg (28.0-32.0); MEAN CORPUSCULAR VOLUME 81.5 fL (80.0-94.0); MEAN PLATELET VOLUME 10.7 fl (7.4-10.4); PLATELET 211 x1000/uL (130-400); RED CELL DISTRIBUTION WIDTH 17.1 % (11.6-14.6)
[2018-01-03 09:06] LABS: INR 1.3; PARTIAL THROMBOPLASTIN TIME 29.1 sec (23.4-31.0); PROTHROMBIN TIME 13.4 sec (9.4-11.6)
[2018-01-03] MEDS: PANTOPRAZOLE SODIUM 40 MG/VIAL IV SCH ×3 (09:46→21:29)
[2018-01-03] MEDS: SILVER SULFADIAZINE 1% CREAM 50GM TOP SCH ×2 (09:46→20:33)
[2018-01-03] MEDS: BLOOD SUGAR DIAGNOSTIC STRIP TEST SCH (09:51)
[2018-01-03 09:56] LABS: PLATELET ESTIMATE NORMAL
[2018-01-03 13:05] LABS: HEMATOCRIT 26.5 % (42.0-52.0); HEMOGLOBIN 8.7 g/dL (14.0-18.0)
[2018-01-03] MEDS ORDERED: ROCURONIUM BROMIDE 10MG/ML VIAL 5ML IV ONE (13:23)
[2018-01-03] MEDS: MICAFUNGIN 100 MG in SODIUM CHLORIDE 0.9% 100 ML IV SCH (15:36)
[2018-01-03 19:01] LABS: HEMATOCRIT 24.8 % (42.0-52.0); HEMOGLOBIN 8.3 g/dL (14.0-18.0)
[2018-01-03] MEDS: TOTAL PARENTERAL NUTRITION 1,600 ML IV SCH (21:00)
[2018-01-03] MEDS ORDERED: TOTAL PARENTERAL NUTRITION 1,600 ML IV SCH (21:00)
[2018-01-04] VITALS (88 sets, daily range): BP systolic 84–168; BP diastolic 34–102
[2018-01-04] MEDS: IPRATROPIUM/ALBUTEROL 0.5-3(2.5)MG/3ML NEB HHN PRN ×3 (00:29→11:48)
[2018-01-04 01:47] LABS: HEMATOCRIT 23.8 % (42.0-52.0); HEMOGLOBIN 7.9 g/dL (14.0-18.0)
[2018-01-04] MEDS: FENTANYL CITRATE/PF 500 MCG in SODIUM CHLORIDE 0.9% 40 ML IV PRN ×3 (02:25→18:19)
[2018-01-04] MEDS: METOCLOPRAMIDE HCL 10MG/2ML VIAL IV SCH ×4 (05:49→20:28)
[2018-01-04] MEDS: METRONIDAZOLE 500 MG PREMIX 100 ML IV SCH ×3 (05:50→23:34)
[2018-01-04] MEDS: INSULIN LISPRO (LOW DOSE) 100 UNITS/ML SUBCUT SCH ×4 (06:00→18:00)
[2018-01-04 07:00] LABS: HEMATOCRIT. 23.9 % (42.0-52.0); HEMOGLOBIN. 8.1 g/dL (14.0-18.0); MEAN CORPUSCULAR HEMOGLOBIN 27.9 pg (28.0-32.0); MEAN CORPUSCULAR VOLUME 82.9 fL (80.0-94.0); PLATELET 271 x1000/uL (130-400); RED BLOOD CELL COUNT 2.88 mill/uL (4.7-6.1); RED CELL DISTRIBUTION WIDTH 18.4 % (11.6-14.6)
[2018-01-04] MEDS: BLOOD SUGAR DIAGNOSTIC STRIP TEST SCH (09:00)
[2018-01-04] MEDS: SILVER SULFADIAZINE 1% CREAM 50GM TOP SCH ×2 (09:00→22:13)
[2018-01-04 09:14] LABS: BG BASE EXCESS -5.9 mmol/L (-2.0-2.0); BG CARBOXYHEMOGLOBIN 0.5 % (0.5-1.5); BG DEOXYHEMOGLOBIN 1.6 % (0.0-5.0); BG FRACTION INSPIRED OXYGEN 35; BG METHEMOGLOBIN 0.6 % (0.0-1.5); BG OXYGEN SATURATION 98.4 % (92.0-98.5); BG OXYHEMOGLOBIN 97.3 % (94.0-97.0); BG PCO2 28.9 mmHg (35.0-45.0); BG PH 7.412 (7.350-7.450); BG PO2 136.2 mmHg (75.0-100.0); BG SAMPLE SITE RIGHT RADIAL; BG TIDAL VOLUME(mL) 550 mL; BG TOTAL HEMOGLOBIN 7.8 g/dL (12.0-18.0); BG VENT MODE VENT - A/C; BG VENT RATE 12 set
[2018-01-04 09:56] LABS: PLATELET ESTIMATE NORMAL
[2018-01-04] MEDS: MICAFUNGIN 100 MG in SODIUM CHLORIDE 0.9% 100 ML IV SCH (14:44)
[2018-01-04 15:47] LABS: HEMATOCRIT 28.6 % (42.0-52.0); HEMOGLOBIN 9.7 g/dL (14.0-18.0)
[2018-01-04] MEDS ORDERED: TOTAL PARENTERAL NUTRITION 1,600 ML IV SCH (21:00)
[2018-01-04] MEDS ORDERED: FAT EMULSIONS 500 ML IV SCH ×2 (21:00)
[2018-01-04] MEDS: PANTOPRAZOLE SODIUM 40 MG/VIAL IV SCH (22:02)
[2018-01-04] MEDS: MEROPENEM 1,000 MG in SODIUM CHLORIDE 0.9% 100 ML IV SCH (22:02)
[2018-01-05] VITALS (92 sets, daily range): BP systolic 86–155; BP diastolic 34–96
[2018-01-05] MEDS: IPRATROPIUM/ALBUTEROL 0.5-3(2.5)MG/3ML NEB HHN PRN (00:19)
[2018-01-05] MEDS: INSULIN LISPRO (LOW DOSE) 100 UNITS/ML SUBCUT SCH ×5 (00:52→23:56)
[2018-01-05] MEDS: METOCLOPRAMIDE HCL 10MG/2ML VIAL IV SCH ×5 (00:55→23:52)
[2018-01-05] MEDS: FENTANYL CITRATE/PF 500 MCG in SODIUM CHLORIDE 0.9% 40 ML IV PRN ×3 (01:44→16:00)
[2018-01-05 04:12] LABS: PHOSPHORUS 5.4 mg/dL (2.5-4.9)
[2018-01-05 05:25] LABS: HEMATOCRIT 24.8 % (42.0-52.0)
[2018-01-05 06:25] LABS: HEMOGLOBIN 9.2 g/dL (14.0-18.0)
[2018-01-05] MEDS: METRONIDAZOLE 500 MG PREMIX 100 ML IV SCH (06:27)
[2018-01-05 08:11] LABS: BG BASE EXCESS -3.1 mmol/L (-2.0-2.0); BG CARBOXYHEMOGLOBIN 0.3 % (0.5-1.5); BG DEOXYHEMOGLOBIN 1.7 % (0.0-5.0); BG HCO3 ACT 20.2 mmol/L (22.0-26.0); BG METHEMOGLOBIN 0.4 % (0.0-1.5); BG OXYGEN SATURATION 98.3 % (92.0-98.5); BG OXYHEMOGLOBIN 97.6 % (94.0-97.0); BG PCO2 29.9 mmHg (35.0-45.0); BG PH 7.447 (7.350-7.450); BG PO2 137.8 mmHg (75.0-100.0); BG SAMPLE SITE RIGHT BRACHIAL; BG TIDAL VOLUME(mL) 550 mL; BG TOTAL HEMOGLOBIN 9.5 g/dL (12.0-18.0); BG VENT MODE VENT - SIMV; BG VENT RATE 10 set
[2018-01-05 09:06] LABS: IMMUNOGLOBULIN A 241 mg/dL (61-437); IMMUNOGLOBULIN G 1159 mg/dL (700-1600); IMMUNOGLOBULIN M 45 mg/dL (20-172)
[2018-01-05] MEDS: BLOOD SUGAR DIAGNOSTIC STRIP TEST SCH (09:54)
[2018-01-05] MEDS: MEROPENEM 1,000 MG in SODIUM CHLORIDE 0.9% 100 ML IV SCH ×2 (09:55→20:36)
[2018-01-05] MEDS: PANTOPRAZOLE SODIUM 40 MG/VIAL IV SCH ×2 (09:55→20:36)
[2018-01-05] MEDS: SILVER SULFADIAZINE 1% CREAM 50GM TOP SCH ×2 (09:55→21:45)
[2018-01-05] MEDS: MORPHINE SULFATE 4 MG/ML CPJ (NOT FOR IM USE) IV PRN (10:10)
[2018-01-05 11:49] LABS: HEMATOCRIT 24.8 % (42.0-52.0); HEMOGLOBIN 8.2 g/dL (14.0-18.0)
[2018-01-05] MEDS: LANTHANUM CARBONATE 500MG CHEW TABLET PO SCH ×2 (12:46→18:42)
[2018-01-05] MEDS: MICAFUNGIN 100 MG in SODIUM CHLORIDE 0.9% 100 ML IV SCH (15:57)
[2018-01-05] MEDS ORDERED: TOTAL PARENTERAL NUTRITION 1,600 ML IV SCH (21:00)
[2018-01-05] MEDS: EPOETIN ALFA 10000UNITS/ML VIAL SUBCUT SCH (21:44)
[2018-01-05] MEDS: FENTANYL CITRATE/PF 1,000 MCG in SODIUM CHLORIDE 0.9% 80 ML IV PRN (21:47)
[2018-01-06] VITALS (86 sets, daily range): BP systolic 87–152; BP diastolic 28–76
[2018-01-06] MEDS: INSULIN LISPRO (LOW DOSE) 100 UNITS/ML SUBCUT SCH ×3 (06:30→17:22)
[2018-01-06 06:37] LABS: HEMATOCRIT. 22.1 % (42.0-52.0); HEMOGLOBIN. 7.4 g/dL (14.0-18.0); MEAN CORPUSCULAR HEMOGLOBIN 28.1 pg (28.0-32.0); MEAN CORPUSCULAR VOLUME 84.5 fL (80.0-94.0); MEAN PLATELET VOLUME 11.1 fl (7.4-10.4); PLATELET 284 x1000/uL (130-400); RED BLOOD CELL COUNT 2.62 mill/uL (4.7-6.1); RED CELL DISTRIBUTION WIDTH 18.7 % (11.6-14.6)
[2018-01-06 07:34] LABS: PLATELET ESTIMATE NORMAL
[2018-01-06] MEDS: IPRATROPIUM/ALBUTEROL 0.5-3(2.5)MG/3ML NEB HHN PRN ×2 (07:59→20:53)
[2018-01-06] MEDS: FENTANYL CITRATE/PF 1,000 MCG in SODIUM CHLORIDE 0.9% 80 ML IV PRN (09:38)
[2018-01-06] MEDS: METOCLOPRAMIDE HCL 10MG/2ML VIAL IV SCH ×3 (09:56→18:08)
[2018-01-06] MEDS: LANTHANUM CARBONATE 500MG CHEW TABLET PO SCH ×3 (09:56→18:08)
[2018-01-06] MEDS: PANTOPRAZOLE SODIUM 40 MG/VIAL IV SCH ×2 (09:57→21:06)
[2018-01-06] MEDS: BLOOD SUGAR DIAGNOSTIC STRIP TEST SCH (09:57)
[2018-01-06] MEDS: FOLIC ACID/VITAMIN B COMP W-C TABLET PO SCH (09:57)
[2018-01-06] MEDS: SILVER SULFADIAZINE 1% CREAM 50GM TOP SCH ×2 (09:57→21:07)
[2018-01-06] MEDS: MEROPENEM 1,000 MG in SODIUM CHLORIDE 0.9% 100 ML IV SCH ×2 (09:57→21:06)
[2018-01-06] MEDS: MICAFUNGIN 100 MG in SODIUM CHLORIDE 0.9% 100 ML IV SCH (15:28)
[2018-01-07] VITALS (66 sets, daily range): BP systolic 92–150; BP diastolic 30–90
[2018-01-07] MEDS: METOCLOPRAMIDE HCL 10MG/2ML VIAL IV SCH ×4 (00:36→20:39)
[2018-01-07] MEDS: FENTANYL CITRATE/PF 1,000 MCG in SODIUM CHLORIDE 0.9% 80 ML IV PRN (03:24)
[2018-01-07] MEDS: INSULIN LISPRO (LOW DOSE) 100 UNITS/ML SUBCUT SCH ×4 (05:11→18:00)
[2018-01-07 05:54] LABS: HEMATOCRIT. 24.1 % (42.0-52.0); HEMOGLOBIN. 7.8 g/dL (14.0-18.0); MEAN CORPUSCULAR HEMOGLOBIN 27.7 pg (28.0-32.0); MEAN CORPUSCULAR VOLUME 85.3 fL (80.0-94.0); PLATELET 276 x1000/uL (130-400); RED BLOOD CELL COUNT 2.82 mill/uL (4.7-6.1)
[2018-01-07] MEDS: BLOOD SUGAR DIAGNOSTIC STRIP TEST SCH (09:12)
[2018-01-07] MEDS: PANTOPRAZOLE SODIUM 40 MG/VIAL IV SCH ×2 (09:12→20:39)
[2018-01-07] MEDS: MEROPENEM 1,000 MG in SODIUM CHLORIDE 0.9% 100 ML IV SCH ×2 (09:12→20:39)
[2018-01-07] MEDS: LANTHANUM CARBONATE 500MG CHEW TABLET PO SCH ×3 (09:12→18:34)
[2018-01-07] MEDS: FOLIC ACID/VITAMIN B COMP W-C TABLET PO SCH (09:12)
[2018-01-07] MEDS: SILVER SULFADIAZINE 1% CREAM 50GM TOP SCH ×2 (09:13→20:40)
[2018-01-07 09:16] LABS: HEMATOCRIT 23.8 % (42.0-52.0); HEMOGLOBIN 7.8 g/dL (14.0-18.0)
[2018-01-07 09:56] LABS: PLATELET ESTIMATE NORMAL
[2018-01-07] MEDS: MICAFUNGIN 100 MG in SODIUM CHLORIDE 0.9% 100 ML IV SCH (13:43)
[2018-01-07] MEDS ORDERED: MEROPENEM 1,000 MG in SODIUM CHLORIDE 0.9% 100 ML IV SCH (15:00)
[2018-01-07] MEDS: MORPHINE SULFATE 4 MG/ML CPJ (NOT FOR IM USE) IV PRN (21:46)
[2018-01-08] VITALS (92 sets, daily range): BP systolic 13–142; BP diastolic 32–98
[2018-01-08] MEDS: IPRATROPIUM/ALBUTEROL 0.5-3(2.5)MG/3ML NEB HHN PRN ×3 (00:12→16:10)
[2018-01-08 05:44] LABS: HEMATOCRIT. 24.1 % (42.0-52.0); HEMOGLOBIN. 8.1 g/dL (14.0-18.0); MEAN CORPUSCULAR HEMOGLOBIN 28.6 pg (28.0-32.0); MEAN CORPUSCULAR VOLUME 85.5 fL (80.0-94.0); MEAN PLATELET VOLUME 11.3 fl (7.4-10.4); PLATELET 290 x1000/uL (130-400); RED BLOOD CELL COUNT 2.82 mill/uL (4.7-6.1); RED CELL DISTRIBUTION WIDTH 16.5 % (11.6-14.6)
[2018-01-08] MEDS: INSULIN LISPRO (LOW DOSE) 100 UNITS/ML SUBCUT SCH ×4 (06:00→18:00)
[2018-01-08] MEDS: METOCLOPRAMIDE HCL 10MG/2ML VIAL IV SCH ×3 (06:00→22:02)
[2018-01-08 06:45] LABS: PHOSPHORUS 7.6 mg/dL (2.5-4.9)
[2018-01-08] MEDS: LANTHANUM CARBONATE 500MG CHEW TABLET PO SCH ×3 (08:08→18:39)
[2018-01-08] MEDS: FOLIC ACID/VITAMIN B COMP W-C TABLET PO SCH (08:09)
[2018-01-08] MEDS: BLOOD SUGAR DIAGNOSTIC STRIP TEST SCH (08:09)
[2018-01-08 08:45] LABS: PLATELET ESTIMATE NORMAL
[2018-01-08] MEDS: PANTOPRAZOLE SODIUM 40 MG/VIAL IV SCH ×2 (09:30→22:03)
[2018-01-08] MEDS: SILVER SULFADIAZINE 1% CREAM 50GM TOP SCH ×2 (09:32→22:04)
[2018-01-08] MEDS ORDERED: SODIUM BICARBONATE 4% (2.4MEQ) 5ML VIAL IV ONE (09:56)
[2018-01-08] MEDS ORDERED: IOHEXOL-300 100 ML BOTTLE ONE (09:57)
[2018-01-08] MEDS ORDERED: FENTANYL CITRATE/PF 50MCG/ML 2ML VIAL ONE (10:38)
[2018-01-08] MEDS ORDERED: GELATIN SPONGE,ABSORBABLE 12-7MM SPONGE ONE ×2 (10:47→11:01)
[2018-01-08] MEDS ORDERED: FENTANYL CITRATE/PF 50MCG/ML 2ML VIAL IV ONE ×2 (11:00→11:30)
[2018-01-08] MEDS ORDERED: MIDAZOLAM HCL 2 MG/2 ML VIAL ONE (11:25)
[2018-01-08] MEDS ORDERED: MIDAZOLAM HCL 5 MG/5 ML VIAL IV ONE (11:30)
[2018-01-08] MEDS: MICAFUNGIN 100 MG in SODIUM CHLORIDE 0.9% 100 ML IV SCH (14:08)
[2018-01-08] MEDS: MEROPENEM 1,000 MG in SODIUM CHLORIDE 0.9% 100 ML IV SCH (22:01)
[2018-01-08] MEDS: EPOETIN ALFA 10000UNITS/ML VIAL SUBCUT SCH (22:03)
[2018-01-09] VITALS (55 sets, daily range): BP systolic 88–159; BP diastolic 26–119
[2018-01-09 05:50] LABS: HEMATOCRIT. 22.2 % (42.0-52.0); HEMOGLOBIN. 7.2 g/dL (14.0-18.0); MEAN CORPUSCULAR HEMOGLOBIN 28.4 pg (28.0-32.0); MEAN CORPUSCULAR VOLUME 87.4 fL (80.0-94.0); MEAN PLATELET VOLUME 11.1 fl (7.4-10.4); PLATELET 300 x1000/uL (130-400); RED BLOOD CELL COUNT 2.55 mill/uL (4.7-6.1); RED CELL DISTRIBUTION WIDTH 16.6 % (11.6-14.6)
[2018-01-09] MEDS: METOCLOPRAMIDE HCL 10MG/2ML VIAL IV SCH ×3 (05:54→23:55)
[2018-01-09] MEDS: INSULIN LISPRO (LOW DOSE) 100 UNITS/ML SUBCUT SCH ×5 (05:56→23:55)
[2018-01-09 07:31] LABS: NUCLEATED RED BLOOD CELLS 1 /100 WBC
[2018-01-09 07:32] LABS: PLATELET ESTIMATE NORMAL
[2018-01-09] MEDS: FOLIC ACID/VITAMIN B COMP W-C TABLET PO SCH (08:04)
[2018-01-09] MEDS: LANTHANUM CARBONATE 500MG CHEW TABLET PO SCH ×3 (08:04→18:27)
[2018-01-09] MEDS: PANTOPRAZOLE SODIUM 40 MG/VIAL IV SCH ×2 (08:04→20:44)
[2018-01-09] MEDS: SILVER SULFADIAZINE 1% CREAM 50GM TOP SCH (08:04)
[2018-01-09 10:12] LABS: PHOSPHORUS 6.3 mg/dL (2.5-4.9)
[2018-01-09 11:04] LABS: INR 1.2
[2018-01-09 18:20] LABS: HEMATOCRIT 23.9 % (42.0-52.0); HEMOGLOBIN 8.1 g/dL (14.0-18.0)
[2018-01-09] MEDS: MEROPENEM 1,000 MG in SODIUM CHLORIDE 0.9% 100 ML IV SCH (20:45)
[2018-01-10] VITALS (53 sets, daily range): BP systolic 110–161; BP diastolic 36–99
[2018-01-10] MEDS: BLOOD SUGAR DIAGNOSTIC STRIP TEST SCH ×4 (00:03→18:02)
[2018-01-10 02:10] LABS: HEMATOCRIT 21.5 % (42.0-52.0); HEMOGLOBIN 7.3 g/dL (14.0-18.0)
[2018-01-10 06:00] LABS: HEMATOCRIT. 22.6 % (42.0-52.0); HEMOGLOBIN. 7.5 g/dL (14.0-18.0); MEAN CORPUSCULAR HEMOGLOBIN 28.9 pg (28.0-32.0); MEAN CORPUSCULAR VOLUME 87.4 fL (80.0-94.0); MEAN PLATELET VOLUME 10.7 fl (7.4-10.4); PLATELET 311 x1000/uL (130-400); RED BLOOD CELL COUNT 2.59 mill/uL (4.7-6.1); RED CELL DISTRIBUTION WIDTH 15.9 % (11.6-14.6)
[2018-01-10] MEDS: INSULIN LISPRO (LOW DOSE) 100 UNITS/ML SUBCUT SCH ×3 (06:00→18:00)
[2018-01-10] MEDS: METOCLOPRAMIDE HCL 10MG/2ML VIAL IV SCH ×3 (06:16→18:10)
[2018-01-10] MEDS: IPRATROPIUM/ALBUTEROL 0.5-3(2.5)MG/3ML NEB HHN PRN ×3 (08:09→20:39)
[2018-01-10] MEDS ORDERED: ONDANSETRON HCL 4MG/2ML VIAL IV PRN (08:30)
[2018-01-10] MEDS: FOLIC ACID/VITAMIN B COMP W-C TABLET PO SCH (08:58)
[2018-01-10] MEDS: LANTHANUM CARBONATE 500MG CHEW TABLET PO SCH ×3 (08:58→18:10)
[2018-01-10] MEDS: PANTOPRAZOLE SODIUM 40 MG/VIAL IV SCH ×2 (08:58→20:02)
[2018-01-10] MEDS: MUPIROCIN 2% OINT 22GM TOP SCH ×2 (08:59→18:11)
[2018-01-10 12:39] LABS: NUCLEATED RED BLOOD CELLS 2 /100 WBC
[2018-01-10 12:40] LABS: PLATELET ESTIMATE NORMAL
[2018-01-10] MEDS: MICAFUNGIN 100 MG in SODIUM CHLORIDE 0.9% 100 ML IV SCH (14:51)
[2018-01-10 19:20] LABS: HEMATOCRIT 29.1 % (42.0-52.0); HEMOGLOBIN 9.9 g/dL (14.0-18.0)
[2018-01-10] MEDS: MEROPENEM 1,000 MG in SODIUM CHLORIDE 0.9% 100 ML IV SCH (20:02)
[2018-01-10 23:08] LABS: HEMATOCRIT 29.8 % (42.0-52.0); HEMOGLOBIN 9.9 g/dL (14.0-18.0)
[2018-01-11] VITALS (45 sets, daily range): BP systolic 91–148; BP diastolic 31–66
[2018-01-11] MEDS: BLOOD SUGAR DIAGNOSTIC STRIP TEST SCH ×4 (00:25→17:37)
[2018-01-11] MEDS: METOCLOPRAMIDE HCL 10MG/2ML VIAL IV SCH ×5 (00:27→23:59)
[2018-01-11] MEDS: INSULIN LISPRO (LOW DOSE) 100 UNITS/ML SUBCUT SCH ×3 (05:39→12:00)
[2018-01-11 08:30] LABS: MEAN CORPUSCULAR HEMOGLOBIN 29.2 pg (28.0-32.0); MEAN CORPUSCULAR VOLUME 87.5 fL (80.0-94.0); MEAN PLATELET VOLUME 11.1 fl (7.4-10.4); PLATELET 263 x1000/uL (130-400); RED BLOOD CELL COUNT 3.09 mill/uL (4.7-6.1); RED CELL DISTRIBUTION WIDTH 15.5 % (11.6-14.6)
[2018-01-11] MEDS: PANTOPRAZOLE SODIUM 40 MG/VIAL IV SCH ×2 (09:42→21:45)
[2018-01-11] MEDS: FOLIC ACID/VITAMIN B COMP W-C TABLET PO SCH (09:43)
[2018-01-11] MEDS: LANTHANUM CARBONATE 500MG CHEW TABLET PO SCH ×3 (09:43→17:36)
[2018-01-11] MEDS: MUPIROCIN 2% OINT 22GM TOP SCH ×2 (09:44→17:05)
[2018-01-11 10:40] LABS: NUCLEATED RED BLOOD CELLS 2 /100 WBC; PLATELET ESTIMATE NORMAL
[2018-01-11] MEDS: IPRATROPIUM/ALBUTEROL 0.5-3(2.5)MG/3ML NEB HHN PRN ×2 (12:14→16:25)
[2018-01-11] MEDS ORDERED: GENTAMICIN SULF 40MG/ML 2ML VIAL ONE (13:21)
[2018-01-11] MEDS ORDERED: BUPIVACAINE HCL/PF 0.5% (5MG/ML) 10ML ONE (13:21)
[2018-01-11] MEDS ORDERED: NORMAL SALINE 0.9% 10 ML SYR ONE (13:21)
[2018-01-11] MEDS ORDERED: LIDOCAINE HCL 1% 20ML VIAL (Pyxis) INJ ONE (13:22)
[2018-01-11] MEDS ORDERED: BACITRACIN 50,000 UNITS/VIAL ONE (13:22)
[2018-01-11] MEDS ORDERED: MORPHINE SULFATE 4 MG/ML CPJ (NOT FOR IM USE) IV PRN (14:15)
[2018-01-11] MEDS: MICAFUNGIN 100 MG in SODIUM CHLORIDE 0.9% 100 ML IV SCH (14:21)
[2018-01-11 15:08] LABS: HEMOGLOBIN 8.9 g/dL (14.0-18.0)
[2018-01-11] MEDS ORDERED: MORPHINE SULFATE 2 MG/ML CPJ (NOT FOR IM USE) IV PRN (16:45)
[2018-01-11] MEDS: MORPHINE SULFATE 4 MG/ML CPJ (NOT FOR IM USE) IV PRN (17:00)
[2018-01-11] MEDS: MEROPENEM 1,000 MG in SODIUM CHLORIDE 0.9% 100 ML IV SCH (21:43)
[2018-01-11] MEDS: EPOETIN ALFA 10000UNITS/ML VIAL SUBCUT SCH (21:45)
[2018-01-11 23:11] LABS: HEMATOCRIT 24.7 % (42.0-52.0); HEMOGLOBIN 8.1 g/dL (14.0-18.0)
[2018-01-12] VITALS (70 sets, daily range): BP systolic 88–131; BP diastolic 31–89
[2018-01-12] MEDS: BLOOD SUGAR DIAGNOSTIC STRIP TEST SCH ×3 (00:41→18:19)
[2018-01-12] MEDS: IPRATROPIUM/ALBUTEROL 0.5-3(2.5)MG/3ML NEB HHN PRN ×2 (00:47→20:10)
[2018-01-12] MEDS: INSULIN LISPRO (LOW DOSE) 100 UNITS/ML SUBCUT SCH ×4 (06:00→18:00)
[2018-01-12] MEDS: METOCLOPRAMIDE HCL 10MG/2ML VIAL IV SCH ×4 (06:00→22:57)
[2018-01-12] MEDS: MORPHINE SULFATE 4 MG/ML CPJ (NOT FOR IM USE) IV PRN ×3 (06:32→22:57)
[2018-01-12] MEDS: LANTHANUM CARBONATE 500MG CHEW TABLET PO SCH ×3 (08:20→18:21)
[2018-01-12 09:22] LABS: HEMATOCRIT. 28.1 % (42.0-52.0); HEMOGLOBIN. 9.2 g/dL (14.0-18.0); MEAN CORPUSCULAR HEMOGLOBIN 28.6 pg (28.0-32.0); MEAN CORPUSCULAR VOLUME 87.6 fL (80.0-94.0); MEAN PLATELET VOLUME 11.2 fl (7.4-10.4); PLATELET 313 x1000/uL (130-400); RED BLOOD CELL COUNT 3.21 mill/uL (4.7-6.1); RED CELL DISTRIBUTION WIDTH 15.5 % (11.6-14.6)
[2018-01-12] MEDS: MUPIROCIN 2% OINT 22GM TOP SCH ×2 (09:32→16:51)
[2018-01-12] MEDS: FOLIC ACID/VITAMIN B COMP W-C TABLET PO SCH (09:32)
[2018-01-12] MEDS: PANTOPRAZOLE SODIUM 40 MG/VIAL IV SCH ×2 (09:32→21:30)
[2018-01-12 10:30] LABS: PLATELET ESTIMATE NORMAL
[2018-01-12] MEDS: MICAFUNGIN 100 MG in SODIUM CHLORIDE 0.9% 100 ML IV SCH (13:39)
[2018-01-12 17:31] LABS: HEMATOCRIT 24.8 % (42.0-52.0); HEMOGLOBIN 8.2 g/dL (14.0-18.0)
[2018-01-12] MEDS: MEROPENEM 1,000 MG in SODIUM CHLORIDE 0.9% 100 ML IV SCH (21:30)
[2018-01-12 23:30] LABS: HEMOGLOBIN 8.1 g/dL (14.0-18.0)
[2018-01-13] VITALS (40 sets, daily range): BP systolic 78–135; BP diastolic 31–71
[2018-01-13] MEDS: METOCLOPRAMIDE HCL 10MG/2ML VIAL IV SCH ×4 (05:59→23:58)
[2018-01-13] MEDS: BLOOD SUGAR DIAGNOSTIC STRIP TEST SCH ×4 (06:00→17:59)
[2018-01-13] MEDS: INSULIN LISPRO (LOW DOSE) 100 UNITS/ML SUBCUT SCH ×5 (06:00→23:59)
[2018-01-13 06:37] LABS: HEMATOCRIT. 25.2 % (42.0-52.0); HEMOGLOBIN. 8.2 g/dL (14.0-18.0); MEAN CORPUSCULAR HEMOGLOBIN 29.1 pg (28.0-32.0); MEAN CORPUSCULAR VOLUME 89.4 fL (80.0-94.0); MEAN PLATELET VOLUME 11.3 fl (7.4-10.4); PLATELET 332 x1000/uL (130-400); RED BLOOD CELL COUNT 2.82 mill/uL (4.7-6.1); RED CELL DISTRIBUTION WIDTH 15.8 % (11.6-14.6)
[2018-01-13] MEDS: LANTHANUM CARBONATE 500MG CHEW TABLET PO SCH ×3 (08:39→18:21)
[2018-01-13] MEDS: FOLIC ACID/VITAMIN B COMP W-C TABLET PO SCH (08:39)
[2018-01-13] MEDS: PANTOPRAZOLE SODIUM 40 MG/VIAL IV SCH ×2 (08:39→21:34)
[2018-01-13] MEDS: MUPIROCIN 2% OINT 22GM TOP SCH ×2 (08:41→18:23)
[2018-01-13 09:36] LABS: NUCLEATED RED BLOOD CELLS 1 /100 WBC
[2018-01-13 09:38] LABS: PLATELET ESTIMATE NORMAL
[2018-01-13] MEDS: MORPHINE SULFATE 4 MG/ML CPJ (NOT FOR IM USE) IV PRN (12:29)
[2018-01-13] MEDS ORDERED: MUPIROCIN 2% OINT 22GM TOP SCH (13:30)
[2018-01-13] MEDS: MICAFUNGIN 100 MG in SODIUM CHLORIDE 0.9% 100 ML IV SCH (14:30)
[2018-01-13] MEDS: EPOETIN ALFA 10000UNITS/ML VIAL SUBCUT SCH (21:34)
[2018-01-13] MEDS: MEROPENEM 1,000 MG in SODIUM CHLORIDE 0.9% 100 ML IV SCH (21:34)
[2018-01-14] VITALS (16 sets, daily range): BP systolic 92–151; BP diastolic 40–62
[2018-01-14] MEDS: IPRATROPIUM/ALBUTEROL 0.5-3(2.5)MG/3ML NEB HHN PRN ×3 (05:56→12:40)
[2018-01-14] MEDS: INSULIN LISPRO (LOW DOSE) 100 UNITS/ML SUBCUT SCH ×4 (06:00→23:19)
[2018-01-14] MEDS: BLOOD SUGAR DIAGNOSTIC STRIP TEST SCH ×5 (06:10→23:20)
[2018-01-14] MEDS: METOCLOPRAMIDE HCL 10MG/2ML VIAL IV SCH ×3 (06:10→21:35)
[2018-01-14 07:31] LABS: HEMATOCRIT. 23.4 % (42.0-52.0); HEMOGLOBIN. 7.7 g/dL (14.0-18.0); MEAN CORPUSCULAR HEMOGLOBIN 29.2 pg (28.0-32.0); MEAN CORPUSCULAR VOLUME 88.8 fL (80.0-94.0); MEAN PLATELET VOLUME 11.1 fl (7.4-10.4); PLATELET 394 x1000/uL (130-400); RED BLOOD CELL COUNT 2.64 mill/uL (4.7-6.1); RED CELL DISTRIBUTION WIDTH 15.7 % (11.6-14.6)
[2018-01-14] MEDS: LANTHANUM CARBONATE 500MG CHEW TABLET PO SCH ×3 (12:06→17:26)
[2018-01-14] MEDS: PANTOPRAZOLE SODIUM 40 MG/VIAL IV SCH ×2 (12:06→21:35)
[2018-01-14] MEDS: FOLIC ACID/VITAMIN B COMP W-C TABLET PO SCH (12:06)
[2018-01-14] MEDS: MUPIROCIN 2% OINT 22GM TOP SCH ×2 (12:07→17:28)
[2018-01-14 13:02] LABS: NUCLEATED RED BLOOD CELLS 5 /100 WBC; PLATELET ESTIMATE NORMAL
[2018-01-14] MEDS: MORPHINE SULFATE 4 MG/ML CPJ (NOT FOR IM USE) IV PRN ×2 (13:20→18:34)
[2018-01-14] MEDS: MICAFUNGIN 100 MG in SODIUM CHLORIDE 0.9% 100 ML IV SCH (17:29)
[2018-01-14] MEDS: SODIUM HYPOCHLORITE 0.125% 473ML SOLUTION TOP SCH (18:52)
[2018-01-14] MEDS: MEROPENEM 1,000 MG in SODIUM CHLORIDE 0.9% 100 ML IV SCH (21:35)
[2018-01-15] VITALS (14 sets, daily range): BP systolic 113–137; BP diastolic 46–106
[2018-01-15] MEDS: MORPHINE SULFATE 4 MG/ML CPJ (NOT FOR IM USE) IV PRN ×5 (03:40→21:40)
[2018-01-15] MEDS: INSULIN LISPRO (LOW DOSE) 100 UNITS/ML SUBCUT SCH ×3 (06:00→18:00)
[2018-01-15] MEDS: BLOOD SUGAR DIAGNOSTIC STRIP TEST SCH ×3 (06:02→18:08)
[2018-01-15] MEDS: METOCLOPRAMIDE HCL 10MG/2ML VIAL IV SCH ×2 (06:04→17:06)
[2018-01-15 07:31] LABS: HEMATOCRIT. 28.2 % (42.0-52.0); MEAN CORPUSCULAR HEMOGLOBIN 28.5 pg (28.0-32.0); MEAN CORPUSCULAR VOLUME 89.3 fL (80.0-94.0); MEAN PLATELET VOLUME 11.1 fl (7.4-10.4); PLATELET 365 x1000/uL (130-400); RED BLOOD CELL COUNT 3.15 mill/uL (4.7-6.1); RED CELL DISTRIBUTION WIDTH 16.4 % (11.6-14.6)
[2018-01-15] MEDS: PANTOPRAZOLE SODIUM 40 MG/VIAL IV SCH ×2 (08:22→21:39)
[2018-01-15] MEDS: LANTHANUM CARBONATE 500MG CHEW TABLET PO SCH ×3 (08:22→18:05)
[2018-01-15] MEDS: FOLIC ACID/VITAMIN B COMP W-C TABLET PO SCH (08:22)
[2018-01-15] MEDS ORDERED: IPRATROPIUM/ALBUTEROL 0.5-3(2.5)MG/3ML NEB HHN PRN (08:30)
[2018-01-15 09:27] LABS: BG BASE EXCESS -0.4 mmol/L (-2.0-2.0); BG DEOXYHEMOGLOBIN 2.4 % (0.0-5.0); BG FRACTION INSPIRED OXYGEN 60; BG HCO3 ACT 22.1 mmol/L (22.0-26.0); BG METHEMOGLOBIN 0.3 % (0.0-1.5); BG OXYGEN SATURATION 97.6 % (92.0-98.5); BG OXYHEMOGLOBIN 97.3 % (94.0-97.0); BG PCO2 28.7 mmHg (35.0-45.0); BG PH 7.505 (7.350-7.450); BG PO2 106.7 mmHg (75.0-100.0); BG SAMPLE SITE RIGHT RADIAL; BG TOTAL HEMOGLOBIN 9.5 g/dL (12.0-18.0); BG VENT MODE MASK - AEROSOL
[2018-01-15 10:09] LABS: NUCLEATED RED BLOOD CELLS 1 /100 WBC; PLATELET ESTIMATE NORMAL
[2018-01-15] MEDS ORDERED: LIDOCAINE HCL/PF 1% 2ML VIAL ONE (10:57)
[2018-01-15] MEDS: IPRATROPIUM/ALBUTEROL 0.5-3(2.5)MG/3ML NEB HHN SCH ×3 (11:52→19:54)
[2018-01-15] MEDS: SODIUM HYPOCHLORITE 0.125% 473ML SOLUTION TOP SCH (13:45)
[2018-01-15] MEDS: MICAFUNGIN 100 MG in SODIUM CHLORIDE 0.9% 100 ML IV SCH (14:15)
[2018-01-15] MEDS: MUPIROCIN 2% OINT 22GM TOP SCH (18:33)
[2018-01-15] MEDS: MEROPENEM 1,000 MG in SODIUM CHLORIDE 0.9% 100 ML IV SCH (21:40)
[2018-01-15 23:24] LABS: BG DEOXYHEMOGLOBIN 3.2 % (0.0-5.0); BG FRACTION INSPIRED OXYGEN 50; BG HCO3 ACT 22.4 mmol/L (22.0-26.0); BG METHEMOGLOBIN 0.3 % (0.0-1.5); BG OXYGEN SATURATION 96.8 % (92.0-98.5); BG OXYHEMOGLOBIN 96.5 % (94.0-97.0); BG PCO2 32.3 mmHg (35.0-45.0); BG PH 7.459 (7.350-7.450); BG PO2 96.1 mmHg (75.0-100.0); BG PRESSURE SUPPORT 10; BG SAMPLE SITE RIGHT RADIAL; BG TIDAL VOLUME(mL) 550 mL; BG TOTAL HEMOGLOBIN 9.2 g/dL (12.0-18.0); BG VENT MODE VENT - SIMV; BG VENT RATE 8 set
[2018-01-16] MEDS ORDERED: MIDAZOLAM HCL 2 MG/2 ML VIAL IV ONE
[2018-01-16] MEDS ORDERED: MIDAZOLAM HCL 2 MG/2 ML VIAL IV NR
== END 2018-01-16 00:25 | DRG 3 ==
LOC: ER 21:28 → CVICU 12-24 01:40 → ENRESERV 12-24 02:04 → 5EST 01-13 13:10
PROVIDERS: ADMIT Internal Medicine; ATTEND Internal Medicine
PROC: 5A1955Z Respiratory Ventilation, Greater than 96 Consecutive Hours (ICD-10-PCS; 2017-12-24)
PROC: 0BH17EZ Insertion of Endotracheal Airway into Trachea, Via Natural or Artificial Opening (ICD-10-PCS; 2017-12-24)
PROC: 02HV33Z Insertion of Infusion Device into Superior Vena Cava, Percutaneous Approach (ICD-10-PCS; 2017-12-24)
PROC: B5181ZA Fluoroscopy of Superior Vena Cava using Low Osmolar Contrast, Guidance (ICD-10-PCS; 2017-12-24)
PROC: 0D1L0Z4 Bypass Transverse Colon to Cutaneous, Open Approach (ICD-10-PCS; principal; 2017-12-27 14:59)
PROC: 02HV33Z Insertion of Infusion Device into Superior Vena Cava, Percutaneous Approach (ICD-10-PCS; 2017-12-29)
PROC: B548ZZA Ultrasonography of Superior Vena Cava, Guidance (ICD-10-PCS; 2017-12-29)
PROC: 5A1D70Z Performance of Urinary Filtration, Intermittent, Less than 6 Hours Per Day (ICD-10-PCS; 2017-12-29)
PROC: 5A1D70Z Performance of Urinary Filtration, Intermittent, Less than 6 Hours Per Day (ICD-10-PCS; 2017-12-31)
PROC: 5A1D70Z Performance of Urinary Filtration, Intermittent, Less than 6 Hours Per Day (ICD-10-PCS; 2018-01-02)
PROC: 30233N1 Transfusion of Nonautologous Red Blood Cells into Peripheral Vein, Percutaneous Approach (ICD-10-PCS; 2018-01-03)
PROC: 0DB68ZX Excision of Stomach, Via Natural or Artificial Opening Endoscopic, Diagnostic (ICD-10-PCS; 2018-01-04)
PROC: 0DH63UZ Insertion of Feeding Device into Stomach, Percutaneous Approach (ICD-10-PCS; 2018-01-04)
PROC: 5A1D70Z Performance of Urinary Filtration, Intermittent, Less than 6 Hours Per Day (ICD-10-PCS; 2018-01-04)
PROC: 0B110F4 Bypass Trachea to Cutaneous with Tracheostomy Device, Open Approach (ICD-10-PCS; 2018-01-06)
PROC: 5A1D70Z Performance of Urinary Filtration, Intermittent, Less than 6 Hours Per Day (ICD-10-PCS; 2018-01-06)
PROC: 04L Lower Arteries, Occlusion (ICD-10-PCS; 2018-01-08)
PROC: 04LE3ZZ Occlusion of Right Internal Iliac Artery, Percutaneous Approach (ICD-10-PCS; 2018-01-08)
PROC: 5A1D70Z Performance of Urinary Filtration, Intermittent, Less than 6 Hours Per Day (ICD-10-PCS; 2018-01-08)
PROC: 5A1D70Z Performance of Urinary Filtration, Intermittent, Less than 6 Hours Per Day (ICD-10-PCS; 2018-01-10)
PROC: 5A1D70Z Performance of Urinary Filtration, Intermittent, Less than 6 Hours Per Day (ICD-10-PCS; 2018-01-12)
PROC: 5A1D70Z Performance of Urinary Filtration, Intermittent, Less than 6 Hours Per Day (ICD-10-PCS; 2018-01-14)
DX: A41.4 Sepsis due to anaerobes (principal); I21.4 Non-ST elevation (NSTEMI) myocardial infarction; N17.0 Acute kidney failure with tubular necrosis; K72.00 Acute and subacute hepatic failure without coma; E43 Unspecified severe protein-calorie malnutrition; J18.9 Pneumonia, unspecified organism; R65.21 Severe sepsis with septic shock; G92 Toxic encephalopathy; J96.00 Acute respiratory failure, unspecified whether with hypoxia or hypercapnia; K29.61 Other gastritis with bleeding; D62 Acute posthemorrhagic anemia; N39.0 Urinary tract infection, site not specified; E87.1 Hypo-osmolality and hyponatremia; Z99.11 Dependence on respirator [ventilator] status; E66.01 Morbid (severe) obesity due to excess calories; B96.20 Unspecified Escherichia coli [E. coli] as the cause of diseases classified elsewhere; D50.9 Iron deficiency anemia, unspecified; E78.5 Hyperlipidemia, unspecified; E87.5 Hyperkalemia; E87.6 Hypokalemia; N18.9 Chronic kidney disease, unspecified; I12.9 Hypertensive chronic kidney disease with stage 1 through stage 4 chronic kidney disease, or unspecified chronic kidney disease; M48.02 Spinal stenosis, cervical region; Z60.2 Problems related to living alone; R79.89 Other specified abnormal findings of blood chemistry; I95.9 Hypotension, unspecified; R74.0 Nonspecific elevation of levels of transaminase and lactic acid dehydrogenase [LDH]; N49.3 Fournier gangrene; K20.9 Esophagitis, unspecified; K44.9 Diaphragmatic hernia without obstruction or gangrene; R13.10 Dysphagia, unspecified; R31.9 Hematuria, unspecified; J45.909 Unspecified asthma, uncomplicated; K29.50 Unspecified chronic gastritis without bleeding; Z68.37 Body mass index [BMI] 37.0-37.9, adult; Z79.899 Other long term (current) drug therapy; Z85.46 Personal history of malignant neoplasm of prostate; Z86.73 Personal history of transient ischemic attack (TIA), and cerebral infarction without residual deficits; Z92.21 Personal history of antineoplastic chemotherapy; Z92.3 Personal history of irradiation; Z99.2 Dependence on renal dialysis; Z98.1 Arthrodesis status; Z78.1 Physical restraint status
CPT/HCPCS: 31500; 36415; 36556; 36569; 36600; 51102; 51702; 71045; 74018; 74176; 75774; 75898; 76770; 76775; 76857; 76870; 76937; 77001; 77012; 80048; 80053; 80061; 80202; 80329; 81001; 82010; 82270; 82375; 82550; 82553; 82784; 82805; 82962; 83010; 83036; 83520; 83540; 83550; 83605; 83615; 83690; 83735; 83880; 84100; 84153; 84439; 84443; 84484; 85014; 85018; 85025; 85027; 85379; 85384; 85610; 85730; 86038; 86160; 86256; 86334; 86705; 86706; 86709; 86803; 86850; 86900; 86920; 87040; 87070; 87076; 87077; 87086; 87106; 87186; 87340; 88305; 88313; 93005; 93306; 93970; 93976; 94002; 94003; 94640; 94664; 96361; 96374; 96375; 96376; 97110; 97163; 97530; 99291; A4216; A6261; C1725; C1729; C1730; C1752; C1760; C1769; C9113; J0171; J0278; J0330; J0885; J1200; J1450; J1580; J1644; J1650; J1815; J2185; J2248; J2250; J2270; J2370; J2405; J2543; J2765; J3010; J3370; J3480; J3490; J7030; J7040; J7050; J7060; J7070; J7620; L8514; P9016; Q9967; A4315